=== PATIENT | female | born 1950 | race Caucasian/White ===

== ENCOUNTER 2016-10-03 20:22 | Emergency (ER) | payer MEDICAID ==
[2016-10-03 20:35] VITALS: TEMP 98.1
[2016-10-03 21:18] LABS: BASO % 0.5 % (0.0-2.0); EOS # 0.1 K/uL (0.0-0.7); EOS % 1.5 % (0.0-4.0); HEMATOCRIT 40.1 % (34.0-47.0); LYMPH # 1.8 K/uL (1.0-4.3); LYMPH % 24.4 % (20.0-40.0); MEAN CORPUSCULAR HGB CONC 33.4 g/dL (33.0-37.0); MEAN PLATELET VOLUME 9.1 fL (7.2-11.7); MONO # 0.7 K/uL (0.0-0.8); MONO % 9.9 % (0.0-10.0); NRBC % 0.1 % (0.0-2.0); RED CELL DISTRIBUTION WIDTH 13.9 % (11.5-14.5); WHITE BLOOD COUNT 7.5 K/uL (4.8-10.8)
[2016-10-03 21:25] LABS: CHLORIDE 101 mmol/L (98-107)
[2016-10-03 21:26] LABS: POTASSIUM 3.8 mmol/L (3.6-5.2); SODIUM 138 mmol/L (132-148)
[2016-10-03 21:28] LABS: ALB/GLOB RATIO 1.5 (1.0-2.1); ALKALINE PHOSPHATASE 55 U/L (38-126); AST/SGOT 20 U/L (14-36); BILIRUBIN,TOTAL 0.7 mg/dL (0.2-1.3); BLOOD UREA NITROGEN 11 mg/dL (7-17); CARBON DIOXIDE 27 mmol/L (22-30); GFR AFRICAN-AMERICAN > 60; GLUCOSE,RANDOM 149 mg/dL (65-105); TOTAL PROTEIN 6.8 g/dL (6.3-8.3)
[2016-10-03 21:29] LABS: ALT/SGPT 28 U/L (9-52); CALCIUM 8.8 mg/dl (8.6-10.4)
--- NOTE | 2016-10-03 21:51 | CT ---
EXAM: CT Head Without Intravenous Contrast CLINICAL HISTORY: 65 years old, female; Signs and symptoms; Numbness / parasthesia; Additional info: Numbness face no focal signs TECHNIQUE: Axial computed tomography images of the head/brain without intravenous contrast. This CT exam was performed using one or more of the following dose reduction techniques: automated exposure control, adjustment of the mA and/or kV according to patient size, and/or use of iterative reconstruction technique. EXAM DATE/TIME: Exam ordered 10/03/2016 9:09 PM COMPARISON: No relevant prior studies available. FINDINGS: Brain: Faint basal ganglia calcification is noted on the right. No hemorrhage. No significant white matter disease. No edema. Ventricles: Unremarkable. No ventriculomegaly. Bones/joints: Unremarkable. No acute fracture. Soft tissues: Unremarkable. Sinuses: Unremarkable as visualized. No acute sinusitis. Mastoid air cells: Unremarkable as visualized. No mastoid effusion. IMPRESSION: 1. No acute findings.
--- NOTE | 2016-10-03 21:53 | C.PDOC ---
History Of Present Illness Patient is a 65 y/o female that presents to the ED for evaluation of numbness to bilateral cheeks. Pt states that she was at the ICU visiting her uncle yesterday, when she felt numbness to both cheeks that lasted for few hours. Pt states she felt numbness again, and was told by a nurse at the hospital that her blood pressure was high, and was told to take more blood pressure medicine. Pt felt left arm numbness today, which prompted her to visit ED. Otherwise, denies any weakness, fever, chills, chest pain, shortness of breath, or any other associated symptoms at this time. Time Seen by Provider: 10/03/16 20:40 Chief Complaint (Nursing): Weakness/Neurological Deficit History Per: Patient History/Exam Limitations: no limitations Onset/Duration Of Symptoms: Days (1) Current Symptoms Are (Timing): Still Present Severity: None Pain Scale Rating Of: 0 Recent travel outside of the [place]: No Additional History Per: Patient Past Medical History Reviewed: Historical Data, Nursing Documentation, Vital Signs Vital Signs: Last Vital Signs Temp 98.1 F 10/03/16 20:30 Pulse 84 10/03/16 21:59 Resp 16 10/03/16 21:59 BP 127/79 10/03/16 21:59 Pulse Ox 98 10/03/16 21:59 - Medical History PMH: Asthma, HTN, Hypercholesterolemia Denies: Chronic Kidney Disease Surgical History: Cholecystectomy Family History: States: No Known Family Hx - Social History Hx Alcohol Use: Yes Hx Substance Use: No Review Of Systems Except As Marked, All Systems Reviewed And Found Negative. Constitutional: Negative for: Fever, Chills Cardiovascular: Negative for: Chest Pain, Palpitations Respiratory: Negative for: Cough, Shortness of Breath Gastrointestinal: Negative for: Nausea, Vomiting, Abdominal Pain Neurological: Positive for: Numbness (bilateral cheeks). Negative for: Weakness , Headache, Dizziness Physical Exam - Physical Exam Appears: Non-toxic, No Acute Distress, Other (recurrent sighing) Skin: Normal Color, Warm, Dry Head: Atraumatic, Normacephalic Neck: Normal ROM, Supple Chest: Symmetrical Cardiovascular: Rhythm Regular, No Murmur Respiratory: Normal Breath Sounds, No Rales, No Rhonchi, No Wheezing Gastrointestinal/Abdominal: Soft, No Tenderness Extremity: Normal ROM, No Tenderness, No Pedal Edema Extremity: Bilateral: Atraumatic Pulses: Left Radial: Normal, Right Radial: Normal Neurological/Psych: Oriented x3, Normal Speech, Normal Cognition, Normal Cranial Nerves, No Cerebellar Signs, Normal Motor Gait: Steady ED Course And Treatment - Laboratory Results Result Diagrams: 10/03/16 21:13 10/03/16 21:13 ECG: Interpreted By Me, Viewed By Mi ECG Rhythm: Sinus Rhythm ECG Interpretation: Normal Rate From EC (bpm) O2 Sat by Pulse Oximetry: 97 (on RA) Pulse Ox Interpretation: Normal - Radiology CXR: Interpreted by Me CXR Interpretation: Yes: No Acute Disease - CT Scan/US Head CT CT/US Interpretation: FINDINGS: Brain: Faint basal ganglia calcification is noted on the right. No hemorrhage. No significant white. matter disease. No edema. Ventricles: Unremarkable. No ventriculomegaly. Bones/joints: Unremarkable. No acute fracture. Soft tissues: Unremarkable. Sinuses: Unremarkable as visualized. No acute sinusitis. Mastoid air cells: Unremarkable as visualized. No mastoid effusion. IMPRESSION: 1. No acute findings. Progress Note: Head CT, labs, EKG, CXR ordered and reviewed. Pt was given Ativan in the ER. Medical Decision Making Medical Decision Making: Pt feeling better popst benzo w/o unremarkable at this time Symptoms c/w anxiety no indication of acs pe or tad Results discussed, and pt identified additional stresses Plan pt does not want to take meds, advised to talk with dr Arteaga about CBT as well as other alternatives to medication Disposition Counseled Patient/Family Regarding: Diagnosis, Need For Followup - Disposition Referrals: Juan Arteaga MD [Staff Provider] - Disposition: HOME/ ROUTINE Disposition Time: 22:28 Condition: GOOD Additional Instructions: Follow up with dr Arteaga Instructions: Generalized Anxiety Disorder (ED) - Clinical Impression Clinical Impression: Anxiety - Scribe Statement The provider has reviewed the documentation as recorded by the Saritha Mccann Provider Attestation: All medical record entries made by the Rogelioibtony were at my direction and personally dictated by me. I have reviewed the chart and agree that the record accurately reflects my personal performance of the history, physical exam, medical decision making, and the department course for this patient. I have also personally directed, reviewed, and agree with the discharge instructions and disposition.
[2016-10-03 21:57] LABS: RBC URINE 1 /hpf (0-3); URINE BILIRUBIN NEGATIVE (NEGATIVE); URINE BLOOD NEGATIVE (NEGATIVE); URINE COLOR Yellow (YELLOW); URINE GLUCOSE (UA) NORMAL (Normal); URINE KETONE NEGATIVE (NEGATIVE); URINE LEUKOCYTE ESTERASE NEG Leu/uL (Negative); URINE PROTEIN NEGATIVE (NEGATIVE); WBC URINE < 1 /hpf (0-5)
[2016-10-03 22:00] VITALS: RESP 16
[2016-10-03 22:40] VITALS: BP 130/75; PULSE 78
[2016-10-03 22:46] VITALS: O2SAT 97
--- NOTE | 2016-10-04 09:02 | RAD ---
PROCEDURE: CHEST RADIOGRAPH, 1 VIEW performed 21:13. HISTORY: chest pain COMPARISON: None available. FINDINGS: LUNGS: Clear. PLEURA: No pneumothorax or pleural fluid seen. CARDIOVASCULAR: No radiographic findings to suggest acute or significant cardiovascular disease. OSSEOUS STRUCTURES: No significant abnormalities. VISUALIZED UPPER ABDOMEN: Normal. OTHER FINDINGS: None. IMPRESSION: No active disease. Concordant results with the preliminary interpretation rendered by the emergency department physician procedure.
--- NOTE | 2016-10-06 12:10 | CARD ---
APPROVED REPORT EKG Measurement Heart [id number] CT [id number] <Conclusion> Normal sinus rhythm Normal ECG
== END 2016-10-03 22:38 | disposition home or self-care (01) ==
LOC: C.ER 20:22
DX: F41.9 Anxiety disorder, unspecified (principal); I10 Essential (primary) hypertension; E78.00 Pure hypercholesterolemia, unspecified
CPT/HCPCS: 70450; 71010; 80053; 81001; 82948; 84484; 85025; 93005; 96374; 99285; J2060

== ENCOUNTER 2017-02-16 08:38 | Day surgery (SDC) | payer MEDICAID ==
[2017-02-16] MEDS ORDERED: Bacitracin 50,000 UNIT in Sodium Chloride 0.9% Irrig 1,000 ML IR SCH (10:14)
[2017-02-16] MEDS ORDERED: ceFAZolin IV 2 gm in Dextrose 0 GM/0 ML BAG IVPB ONE (10:16)
[2017-02-16] MEDS ORDERED: Clindamycin 2% Vaginal Cream(40 gm) ONE (10:21)
[2017-02-16] MEDS ORDERED: Bupivacaine-Epi 0.5%-1:200,000 PF Inj ONE (10:21)
[2017-02-16] MEDS ORDERED: Lidocaine 1% Inj (20ml) ONE (10:21)
[2017-02-16] MEDS ORDERED: ceFAZolin IV 1 gm in Dextrose 1 GM/50 ML BAG IVPB ONE (10:21)
[2017-02-16] MEDS ORDERED: Midazolam 2 MG/2 ML VIAL ONE (10:29)
[2017-02-16] MEDS ORDERED: Propofol 10 mg/ml Inj (20 ML) ONE (10:29)
[2017-02-16] MEDS ORDERED: Gentamicin 160 MG in Sodium Chloride 0.9% 100 ML IVPB ONE (10:30)
[2017-02-16] MEDS ORDERED: Lactated Ringer's 1,000 ML IV ONE ×3 (10:37→15:10)
[2017-02-16] MEDS ORDERED: Neostigmine Methylsulfate 3mg/3ml Syringe IV ONE (11:07)
--- NOTE | 2017-02-16 12:01 | PCM.SURG1 ---
Surgeon's Initial Post Op Note - Surgeon's Notes Surgeon: Marcello [employer] Rental Agent: n/a Type of Anesthesia: General LMA Anesthesia Administered By: staff Pre-Operative Diagnosis: stress incontence due to hypermobility Operative Findings: bn hypermobility Post-Operative Diagnosis: same Operation Performed: TVT Specimen/Specimens Removed: na Estimated Blood Loss: EBL {In ML}: 0 Blood Products Given: N/A Drains Used: No Drains Post-Op Condition: Good Date of Surgery/Procedure: 02/16/17 Time of Surgery/Procedure: 12:02
[2017-02-16] MEDS: HYDROmorphone 0.5 mg/0.5 ml ISec IVP PRN ×2 (12:20→12:40)
[2017-02-16] MEDS ORDERED: HYDROmorphone 0.5 mg/0.5 ml ISec IVP PRN (12:53)
[2017-02-16] MEDS ORDERED: Oxycodone/Acetaminophen 5/325 mg Tab PO PRN (15:42)
[2017-02-16 17:04] VITALS: BP 108/64; PULSE 66; RESP 18; TEMP 97.5; O2SAT 98
--- NOTE | 2017-02-16 19:07 | OP ---
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 PROCEDURE: Tension-free vaginal tape (Midurethral, transvaginal suspension of the urethra with mesh tape). DESCRIPTION OF PROCEDURE: Prior to the procedure, a detailed informed consent was obtained from the patient. She understood the special risks and complications due to use of mesh tape and would like to accept them in order to avoid a scar and the harvesting of a fascial sling. She also understood the other risks and complications of vaginal surgery and the special risk of TVT including mesh erosion, urinary retention, ureteral vaginal fistula, pain, discomfort, urinary retention, urinary incontinence, infection, bleeding and many others including dyspareunia. The patient agreed to accept these risks, was brought into the room and a time-out was taken according to the rules and regulations of [facility]. The patient in the lithotomy position. The vagina was draped and prepped and the suprapubic area also. A #18 Pruett catheter was inserted. A weighted speculum was placed in the vagina and marking pens were used to prashanth the area of the incision after the bladder neck was palpated by putting gentle traction on the Pruett catheter. The area was infiltrated with 0.5% Marcaine and Xylocaine solution with epinephrine. An incision was made over the marked area with care to avoid injury to the urethra, none occurred. The two Allis clamps were used to grasp the edges of the vaginal incision and the surgeon's finger was used to dissect the plane lateral to the urethra on both sides. At this point, 30 mL of normal saline was instilled suprapubically through a spinal needle to create a space. A 1-inch incision was made in the suprapubic area with using the Bovie cautery. The trocar needles were passed through the rectus fascia along the posterior wall of the pubic bone and up to the vaginal incision using the surgeon's gloved finger in the incision lateral to the urethra on both sides as a guide. Once the trocars were passed, Pruett catheter was removed. The patient was cystoscoped with both 30 and 70 degree lens. There was no evidence of bladder perforation. The vaginal incision was checked. There was no button holding of the trocars. The area was irrigated with copious antibiotic solution and then the tension-free vaginal tape was secured to the end of the trocars. The tape was then pulled upwards with the surgeon's finger between the urethra and the tape until it snug on the surgeon's finger. The finger was removed and a Allis clamp was placed below the urethra and the tape was secured to snug to the proper incision. The covering plastic was then removed and the Allis clamp was removed and this resulted in good support of the mid urethra. The patient tolerated this well. The skin incisions were then closed after copious irrigation with skin teodoro. The vaginal incision was closed with 3-0 chromic suture. A antibiotic vaginal packing was placed. Pruett catheter was left in place and into the leg bag. The patient was given appropriate antibiotics and pain medications and discharged. Instructions to follow up in our office on for Pruett catheter removed. She understands the possible complications of management and will notify us if there is any problems. Mg Armendariz MD
== END 2017-02-16 17:00 | disposition home or self-care (01) ==
LOC: C.SDS 08:38
PROVIDERS: ATTEND Urology
DX: R32 Unspecified urinary incontinence (principal)
CPT/HCPCS: 57288; 82948; C1771; J0690; J1170; J1580; J2405; J2710; J2765; J3010; J7120